=== PATIENT | female | born 1985 | race African-American/Black ===

== ENCOUNTER 2017-04-01 03:11 | Emergency (ER) | payer OTHER ==
[2017-04-01 03:16] VITALS: BP 153/90; BMI 31.1
--- NOTE | 2017-04-01 04:01 | DR.HTN ---
HPI - Time Seen Time seen: 03:52 - Primary Care Physician Primary Care Physician: GLEN - Complaints Chief Complaint Doctors Comments: Elevateed BP after a salty evening. Chief Complaint:: BLOOD PRESSURE HIGH - Source History Provided: Patient - Mode of Arrival Mode of Arrival: Ambulatory - Timing Onset of Chief Complaint: 03/31/17 PMH - PMH Past Medical History: Yes Past Medical History: Anemia Past Surgical History: No - Family History History of Family Medical Conditions: Yes Family Medical History: Hypertension - Social History Type of Tobacco Use: Cigarettes Alcohol Use: None Do you use any recreational Drugs:: No Lives With: Family Lives Where: Home - infectious screening Have you traveled outside the country in the last 6 months?: No Isolation: Standard ROS - Review of Systems Constitutional: No Symptoms Reported Eyes: No Symptoms Reported ENTM: No Symptoms Reported Respiratoy: No Symptoms Reported Cardiovascular: No Symptoms Reported Gastrointestinal/Abdominal: No Symptoms Reported Genitourinary: No Symptoms Reported Neurological: No Symptoms Reported Musculoskeletal: No Symptoms Reported Integumentary: No Symptoms Reported Hematologic/Lymphatic: No Symptoms Reported Endocrine: No Symptoms Reported Psychiatric: No Symptoms Reported All Other Systems: Reviewed and Negative PE - Vital Signs Vitals: Temperature 99.0 F Pulse Rate 62 Respiratory Rate 16 Blood Pressure 153/90 O2 Sat by Pulse Oximetry 100 - General Limitations: No Limitations General Appearance: Alert - Head Head Exam: Normal Inspection - Eyes Eye exam: Normal Appearance - Neck Neck Exam: Normal Inspection, Full ROM, Trachea Midline - Chest Chest Inspection: Normal Inspection - Respiratory Respiratory Exam: Normal Lung Sounds Bilat - Cardiovascular Cardiovascular Exam: Regular Rate, Normal Rhythm, Normal Heart Sounds - Extremities Extremities Exam: Normal Inspection, Full ROM - Back Back Exam: Normal Inspection, Full ROM - Neurologic Neurological Exam: Alert, Oriented X3, CN II-XII Intact, Normal Gait Cerebellar Function: Normal Gait - Psychiatric Psychiatric Exam: Normal Affect - Skin Skin Exam: Warm, Dry, Intact, Normal Color - Diagnosis Discharge Problem: Borderline hypertension, Sodium (Na) excess - Discharge Plan Disposition: 01 HOME, SELF-CARE Condition: Stable - Follow ups/Referrals Follow ups/Referrals: NFD,None [Primary Care Provider] - 3 days - Instructions Instructions: Hypertension, [id number], DASH Eating Plan, Heart-Healthy Eating Plan, [id number], Low-Sodium Eating Plan
== END 2017-04-01 04:19 | disposition home or self-care (01) ==
LOC: ER 03:11
DX: I10 Essential (primary) hypertension (principal)
CPT/HCPCS: 99281; 99282